=== PATIENT | female | born 1970 | race Caucasian/White ===

== ENCOUNTER → 2020-11-13 | Outpatient (CLI) | payer OTHER | LOC: WCC 09:59 | PROC: 0JBN0ZZ Excision of Right Lower Leg Subcutaneous Tissue and Fascia, Open Approach (ICD-10-PCS; principal; 2020-11-13) | DX: I87.311 Chronic venous hypertension (idiopathic) with ulcer of right lower extremity (principal); L97.812 Non-pressure chronic ulcer of other part of right lower leg with fat layer exposed; L03.115 Cellulitis of right lower limb; I87.2 Venous insufficiency (chronic) (peripheral); E66.01 Morbid (severe) obesity due to excess calories; R46.0 Very low level of personal hygiene; I73.9 Peripheral vascular disease, unspecified; Z88.6 Allergy status to analgesic agent ==

== ENCOUNTER → 2020-11-28 | Outpatient (CLI) | payer OTHER | LOC: WCC 10:00 | PROC: 0JBN0ZZ Excision of Right Lower Leg Subcutaneous Tissue and Fascia, Open Approach (ICD-10-PCS; principal; 2020-11-28) | DX: I87.311 Chronic venous hypertension (idiopathic) with ulcer of right lower extremity (principal); L97.812 Non-pressure chronic ulcer of other part of right lower leg with fat layer exposed; L03.115 Cellulitis of right lower limb; I96 Gangrene, not elsewhere classified; I87.2 Venous insufficiency (chronic) (peripheral); R46.0 Very low level of personal hygiene; I10 Essential (primary) hypertension; I89.0 Lymphedema, not elsewhere classified; J45.909 Unspecified asthma, uncomplicated; M19.90 Unspecified osteoarthritis, unspecified site; E66.01 Morbid (severe) obesity due to excess calories; Z68.43 Body mass index [BMI] 50.0-59.9, adult; Z79.2 Long term (current) use of antibiotics; Z79.899 Other long term (current) drug therapy; Z88.6 Allergy status to analgesic agent | CPT/HCPCS: 87070; 87077; 87186; 87205 ==